=== PATIENT | male | born 1950 | race Caucasian/White ===

== ENCOUNTER → 2017-05-01 | Outpatient (CLI) | payer OTHER ==
[~2017-05-01] MED LIST: ASP81CT PO; ASPIRIN; ATRV10T; CATHETER FLUSH 10 ML SYR IV PRN; DPH25C; FENO135C PO; FURO20TA4 PO; HCT25T PO; ISM30TCR; LISI10TA PO; METO50TA7; MNTL10T; OMEG300C PO; POTA8TAB PO; POTASSIUM GLUCONATE PO; PRV20T PO; REGADENOSON 0.4 MG/5 ML SYR (LEXISCAN) IV ONE; VITAMIN B-12 PO; VRP240TCR PO
--- NOTE | 2017-05-01 23:04 | STRESS TEST ---
DATE OF SERVICE: 05/01/2017 REFERRING PHYSICIAN: None. Baseline heart rate is 75. Baseline blood pressure is 189/107. Baseline EKG is sinus rhythm with no ischemic changes. In summary, the patient was injected with 10.0 mCi of technetium-99 Myoview and the resting images were obtained. Then, the patient received 0.4 mg of Lexiscan followed by 28.7 mCi of technetium-99 Myoview. Throughout the test, there were no EKG changes. The resting and stress images were reviewed and compared in the short axis, horizontal long axis, and vertical long axis views. Review of the images showed extracardiac attenuation, there is a small left ventricular size with no significant ischemia, SSS is 6, SDS is 5, TID value 1.05. On the gated images, the left ventricle appeared to be normal size with normal contractility, calculated ejection fraction of 73%. CONCLUSION: 1. The patient tolerated the Lexiscan well. 2. Extracardiac attenuation affecting the quality of the images. There is mild decreased uptake at the basal to mid anterior wall with subtle reversibility, most probably secondary to the extracardiac attenuation. No significant ischemia was noted. 3. Normal left ventricular size with normal contractility, calculated ejection fraction 73%. Job ID: [id number] DocumentID: [id number] Dictated Date: 05/01/2017 16:18:07 Program Attendant Date: 05/01/2017 22:01:24 Dictated By: ANASTASIA DICKSON MD
== END ==
LOC: CARD 09:12
PROVIDERS: ATTEND Internal Medicine Cardiovascular Disease
DX: R07.89 Other chest pain (principal); I25.10 Atherosclerotic heart disease of native coronary artery without angina pectoris; I65.23 Occlusion and stenosis of bilateral carotid arteries; I10 Essential (primary) hypertension; E78.2 Mixed hyperlipidemia; R06.00 Dyspnea, unspecified
CPT/HCPCS: 78452; 93017; 93306

== ENCOUNTER → 2019-05-18 | Outpatient (CLI) | payer OTHER ==
[~2019-05-18] VITALS: Ht 165 cm; Wt 97.0 kg
[2019-05-18 10:19] VITALS: BP 198/91
--- NOTE | 2019-05-18 12:26 | STRESS TEST ---
DATE OF SERVICE: 05/18/2019 LEXISCAN MYOVIEW STRESS TEST REPORT REFERRING PHYSICIAN: MARISOL Porras Baseline heart rate is 69, baseline blood pressure 198/91. Baseline EKG is sinus rhythm with no ischemic changes. In summary, the patient was injected with 9.93 mCi of technetium-99 Myoview and the resting images were obtained. Then, the patient received 0.4 mg of Lexiscan followed by 31.4 mCi of technetium-99 Myoview. Throughout the test, there were no EKG changes. The resting and stress images were reviewed and compared in the short axis, horizontal long axis, and vertical long axis views. Review of the images showed diaphragmatic attenuation with no significant ischemia or infarction. SSS is 4, SDS 1, TID value 1.09. On the gated images, the left ventricle appeared to be in normal size with normal contractility. Calculated ejection fraction 74%. CONCLUSION: 1. The patient tolerated Lexiscan well. 2. Baseline hypertension persisted throughout test. 3. Diaphragmatic attenuation with no significant ischemia or infarction on SPECT images. 4. Normal left ventricular size with normal contractility. Calculated ejection fraction 74%. Job ID: [id number] DocumentID: [id number] Dictated Date: 05/18/2019 11:55:37 Piler Date: 05/18/2019 12:25:35 Dictated By: ANASTASIA DICKSON MD
== END ==
LOC: CARD 07:57
PROVIDERS: ATTEND Physician Assistant
DX: I25.10 Atherosclerotic heart disease of native coronary artery without angina pectoris (principal); I65.23 Occlusion and stenosis of bilateral carotid arteries; I10 Essential (primary) hypertension
CPT/HCPCS: 78452; 93017; 93306

== ENCOUNTER → 2022-05-01 | Outpatient (CLI) | payer OTHER ==
[~2022-05-01] MED LIST changes: -CATHETER FLUSH 10 ML SYR IV PRN
[2022-05-01] MEDS: CATHETER FLUSH 10 ML SYR IVP PRN ×2 (07:15→08:25)
[2022-05-01 08:15] VITALS: BP 141/80
[2022-05-01 08:22] VITALS: BP 167/87
--- NOTE | 2022-05-02 11:12 | Cardiology Stress Test Report ---
Stress Test Report Date of Procedure/Referring: Date of Procedure: May 01, 2022 PCP No,Local Physician Admitting Physician Admitting Physician: Attending Physician: Anastasia Novak MD Indications: HTN Baseline Heart Rate: 75 Baseline Blood Pressure: Blood Pressure Systolic: 167 Blood Pressure Diastolic: 87 Baseline Vitals Vital Signs Date Time Temp Pulse Resp B/P (MAP) Pulse Ox O2 Delivery O2 Flow Rate FiO2 05/01/22 08:22 74 16 167/87 (113) 98 Room Air Baseline EKG: Baseline EKG: NSR Summary After explaining the procedure to the patient, he signed a consent and then brought to the stress nuclear laboratory. Patient received 0.4 mg Lexiscan for stress test, ECG, heart rate and blood pressure were monitored continuously. Resting and stress dose of radio tracer were injected, imaging was acquired and reviewed in short axis, horizontal long axis and vertical long axis views. TID: 0.57 SSS: 6 SDS: 1 EF: 80 1. Patient tolerated Lexiscan well 2. Mild decrease uptake involving the mid to apical anterior wall which is fixed. No significant ischemia was noted 3. Normal left ventricular size, ejection fraction 80% ANASTASIA NOVAK MD May 02, 2022 11:12
== END ==
LOC: CARD 07:15
PROVIDERS: ATTEND Internal Medicine Cardiovascular Disease
DX: I10 Essential (primary) hypertension (principal)
CPT/HCPCS: 78452; 93017; A9502